=== PATIENT | female | born 1950 | race Caucasian/White ===

== ENCOUNTER → 2016-12-01 | Outpatient (CLI) | payer OTHER ==
--- NOTE | 2016-12-01 15:56 | US ---
Thyroid Sonography Clinical History: 66-year-old female with a history of thyroid cancer, status post thyroidectomy 10 years ago. ICD-10 Diagnostic Code: C73. Technique: A linear 12 MHz transducer was used to sonographically evaluate the thyroid bed and the ce rvical lymph node chains. Color Doppler was also used. Comparison Study: Thyroid sonography, dated January 05, 2011. Findings: The patient has had a complete thyroidectomy, with no sonographic evidence of residual or recurrent thyroid tissue. Bilateral cervical lymph nodes are identified, and are mildly enlarged. In the left neck, level II, the largest lymph node measures 1.2 x 1.9 x 0.7 cm; a portion of the echogen ic fatty hilum is seen. The largest lymph node in the right side is also seen at the level II station , measuring 2.0 x 1.1 x 0.5 cm. The echogenic fatty hilum is still present. The cortical rim measures 1.8 mm in thickness on the right, and 1.5 mm in thickness on the left. As a point of reference, on t he prior sonogram, bilateral lymph nodes were seen, the largest noted in the left neck lateral to the internal jugular vein measuring 1.3 cm in diameter. Impression: 1. Status post thyroidectomy, with no residual thyroid tissue observed. 2. Bilateral mildly prominent lymph nodes, with the largest seen at each level II station, measuring up to 1.9 cm on the left and 2.0 cm on the right. These are more prominent than on the previous study of 2010, and clinical correlation and follow up are suggested.
== END ==
LOC: FIMAGING 12:47
DX: Z08 Encounter for follow-up examination after completed treatment for malignant neoplasm (principal); Z85.850 Personal history of malignant neoplasm of thyroid; E89.0 Postprocedural hypothyroidism